=== PATIENT | male | born 1970 | race Hispanic/Latino ===

== ENCOUNTER 2022-09-13 13:51 | Inpatient (IN) | payer OTHER ==
[~2022-09-13 13:51] MED LIST: Iopamidol-370 76% 500 ML 1 ML ONE
[2022-09-13 14:59] LABS: ALT (SGPT) 25 U/L (8-55); AST (SGOT) 16 U/L (5-34); Albumin 4.3 g/dL (3.5-5.0); Alkaline Phosphatase 51 U/L (40-110); Anion Gap 15 mmol/L (10-20); BUN (Urea Nitrogen) 15 mg/dL (8.4-25.7); Bilirubin, Total 1.4 mg/dL (0.2-1.2); Calc. Creatinine Clearance 0 mL/min (70-130); Calcium 10.2 mg/dL (7.8-10.44); Carbon Dioxide 21 mmol/L (22-29); Chloride 101 mmol/L (98-107); Estimated GFR 72; Globulin 3.8 g/dL (2.4-3.5); Glucose 104 mg/dL (70-105); Potassium 3.4 mmol/L (3.5-5.1); Protein, Total 8.1 g/dL (6.0-8.3); Sodium 134 mmol/L (136-145)
[2022-09-13 15:34] LABS: Band 1 % (5-11); Lymphocytes 9 % (21-51); MDiff Complete? YES; Mean Corpuscular HGB CONC 34.5 g/dL (32.0-36.0); Mean Corpuscular Hemoglobin 31.1 pg (27.0-31.0); Mean Corpuscular Volume 90.2 fl (78.0-98.0); Mean Platelet Volume 7.7 fL (7.4-10.4); Monocytes 8 % (0-10); Neutrophil 78 % (42-75); Platelet Count 306 thou/uL (130-400); Platelet Morphology Comment Appears Adequate; RBC Distribution Width 11.5 % (11.5-14.5); RBC Morphology Normal; Reactive Lymphocytes 4 % (0-10); Red Blood Cell (RBC) Count 4.83 mill/uL (4.70-6.10); White Blood Cell (WBC) Count 14.7 thou/uL (4.8-10.8)
[2022-09-13] MEDS ORDERED: Piperacillin/Tazobactam 4.5 GM VIAL ONE (16:37)
[2022-09-13] MEDS ORDERED: Morphine 4 MG/ML VIAL ONE (16:46)
[2022-09-13] MEDS ORDERED: Ondansetron PF 4 MG/2 ML Vial IVP PRN (17:10)
[2022-09-13] MEDS ORDERED: VANCOMYCIN 2 GRAM/500 ML BAG 2 GM in Premix Bag 1 BAG IVPB SCH (18:15)
[2022-09-13] MEDS ORDERED: Albuterol Sulfate 2.5 mg/3 ml Neb NEB PRN (18:23)
[2022-09-13] MEDS ORDERED: Acetaminophen 325 MG TAB ONE (18:47)
[2022-09-13] MEDS: Heparin 5,000 UNITS/ML VIAL SC SCH (20:20)
[2022-09-13] MEDS: Atorvastatin Calcium 20 MG TAB PO SCH (20:20)
[2022-09-13] MEDS: HYDROcodone/Acetaminophen 5/325 mg Tablet PO PRN (20:21)
[2022-09-13] MEDS: Amlodipine 5 MG TAB PO SCH (20:33)
[2022-09-13] MEDS: Allopurinol 100 MG TAB PO SCH (20:34)
[2022-09-13] MEDS ORDERED: Vancomycin 1 GM in Premix Bag 1 BAG IVPB SCH (21:00)
[2022-09-13 22:25] VITALS: BMI 32.5
[2022-09-14] MEDS: Potassium Chloride 20 MEQ in Lactated Ringer's 1,000 ML IV SCH ×3 (00:51→20:40)
[2022-09-14] MEDS: HYDROcodone/Acetaminophen 5/325 mg Tablet PO PRN ×6 (01:01→20:41)
[2022-09-14 02:18] LABS: SARS-CoV-2 NAA Rapid Test Not Detected (NotDetected)
[2022-09-14] MEDS: VANCOMYCIN 1.25 GM/250 ML BAG 1.25 GM in Premix Bag 1 BAG IVPB SCH ×2 (05:32→18:25)
[2022-09-14 05:48] LABS: #Basophils 0.1 thou/uL (0.0-0.2); #Eosinphils 0.4 thou/uL (0.0-0.7); #Lymphocytes 1.6 thou/uL (1.20-3.40); #Monocytes 0.9 thou/uL (0.11-0.59); #Neutrophils 7.6 thou/uL (1.40-6.50); %Basophils 0.5 % (0.0-1.0); %Eosinophils 3.7 % (0.0-10.0); %Lymphocytes 15.1 % (21.0-51.0); %Monocytes 8.1 % (0.0-10.0); %Neutrophils 72.6 % (42.0-75.0); Hemoglobin 13.4 g/dL (14.0-18.0); Mean Corpuscular HGB CONC 33.6 g/dL (32.0-36.0); Mean Corpuscular Hemoglobin 30.9 pg (27.0-31.0); Mean Corpuscular Volume 91.8 fl (78.0-98.0); Mean Platelet Volume 7.9 fL (7.4-10.4); Platelet Count 310 thou/uL (130-400); RBC Distribution Width 11.6 % (11.5-14.5); Red Blood Cell (RBC) Count 4.35 mill/uL (4.70-6.10); White Blood Cell (WBC) Count 10.5 thou/uL (4.8-10.8)
[2022-09-14 06:04] LABS: Anion Gap 13 mmol/L (10-20); BUN (Urea Nitrogen) 14 mg/dL (8.4-25.7); Calc. Creatinine Clearance 139 mL/min (70-130); Calcium 9.5 mg/dL (7.8-10.44); Carbon Dioxide 24 mmol/L (22-29); Chloride 102 mmol/L (98-107); Estimated GFR 104; Glucose 111 mg/dL (70-105); Potassium 3.5 mmol/L (3.5-5.1); Sodium 135 mmol/L (136-145)
[2022-09-14] MEDS: Losartan 25 MG TAB PO SCH (08:42)
[2022-09-14] MEDS: Heparin 5,000 UNITS/ML VIAL SC SCH ×3 (08:43→20:40)
[2022-09-14] MEDS ORDERED: Amlodipine 5 MG TAB PO SCH (09:00)
[2022-09-14] MEDS ORDERED: Allopurinol 100 MG TAB PO SCH (09:00)
[2022-09-14] MEDS ORDERED: Dexamethasone 10 MG/ML VIAL SLOW IVP SCH (09:00)
[2022-09-14] MEDS: Fenofibrate 48 MG TAB PO SCH (12:28)
[2022-09-14] MEDS ORDERED: FLU VACC QS2022-23(6MOS UP)/PF 60 MCG/0.5 ML SYRINGE IM ONE (12:30)
[2022-09-14] MEDS: Allopurinol 100 MG TAB PO SCH (20:40)
[2022-09-14] MEDS: Amlodipine 5 MG TAB PO SCH (20:40)
[2022-09-14] MEDS: Atorvastatin Calcium 20 MG TAB PO SCH (20:40)
[2022-09-15] MEDS: Potassium Chloride 20 MEQ in Lactated Ringer's 1,000 ML IV SCH ×2 (01:40→13:53)
[2022-09-15] MEDS: HYDROcodone/Acetaminophen 5/325 mg Tablet PO PRN (04:20)
[2022-09-15] MEDS: VANCOMYCIN 1.25 GM/250 ML BAG 1.25 GM in Premix Bag 1 BAG IVPB SCH ×3 (06:11→16:18)
[2022-09-15 06:17] LABS: Vancomycin, Trough 7.9 ug/mL
[2022-09-15] MEDS: HYDROcodone/Acetaminophen 10/325 mg Tablet PO PRN ×4 (08:04→22:11)
[2022-09-15 08:14] LABS: #Lymphocytes 1.2 thou/uL (1.20-3.40); #Monocytes 0.7 thou/uL (0.11-0.59); #Neutrophils 11.7 thou/uL (1.40-6.50); %Eosinophils 0.1 % (0.0-10.0); %Lymphocytes 8.6 % (21.0-51.0); %Monocytes 5.2 % (0.0-10.0); %Neutrophils 86.1 % (42.0-75.0); Hemoglobin 13.5 g/dL (14.0-18.0); Mean Corpuscular HGB CONC 33.6 g/dL (32.0-36.0); Mean Corpuscular Hemoglobin 31.3 pg (27.0-31.0); Mean Platelet Volume 7.5 fL (7.4-10.4); Platelet Count 373 thou/uL (130-400); RBC Distribution Width 11.4 % (11.5-14.5); Red Blood Cell (RBC) Count 4.32 mill/uL (4.70-6.10); White Blood Cell (WBC) Count 13.6 thou/uL (4.8-10.8)
[2022-09-15 08:32] LABS: Anion Gap 12 mmol/L (10-20); BUN (Urea Nitrogen) 13 mg/dL (8.4-25.7); Calc. Creatinine Clearance 150 mL/min (70-130); Calcium 9.4 mg/dL (7.8-10.44); Carbon Dioxide 23 mmol/L (22-29); Chloride 105 mmol/L (98-107); Estimated GFR 106; Glucose 140 mg/dL (70-105); Sodium 136 mmol/L (136-145)
[2022-09-15] MEDS: Fenofibrate 48 MG TAB PO SCH (09:15)
[2022-09-15] MEDS: Losartan 25 MG TAB PO SCH (09:15)
[2022-09-15] MEDS: Heparin 5,000 UNITS/ML VIAL SC SCH ×3 (09:16→20:58)
[2022-09-15] MEDS ORDERED: Albuterol 200 PUFF (6.7GM INHALER) INH PRN (15:28)
[2022-09-15] MEDS ORDERED: Morphine 4 MG/ML VIAL SLOW IVP SCH (15:45)
[2022-09-15] MEDS ORDERED: Lidocaine 1% PF 10 ML AMP FS SCH (15:45)
[2022-09-15] MEDS ORDERED: Morphine 4 MG/ML VIAL SLOW IVP PRN (18:19)
[2022-09-15] MEDS: Mupirocin 2% Ointment 22 GM Tube TOP SCH (20:59)
[2022-09-15] MEDS: Allopurinol 100 MG TAB PO SCH (21:00)
[2022-09-15] MEDS: Amlodipine 5 MG TAB PO SCH (21:00)
[2022-09-15] MEDS: Atorvastatin Calcium 20 MG TAB PO SCH (21:00)
[2022-09-16] MEDS: VANCOMYCIN 1.25 GM/250 ML BAG 1.25 GM in Premix Bag 1 BAG IVPB SCH ×2 (00:19→08:54)
[2022-09-16] MEDS: Potassium Chloride 20 MEQ in Lactated Ringer's 1,000 ML IV SCH (03:00)
[2022-09-16] MEDS: HYDROcodone/Acetaminophen 10/325 mg Tablet PO PRN ×2 (04:48→08:51)
[2022-09-16 07:53] VITALS: BP 143/90; TEMP 98.6
[2022-09-16 08:06] LABS: Vancomycin, Trough 17.5 ug/mL
[2022-09-16] MEDS: Losartan 25 MG TAB PO SCH (08:50)
[2022-09-16] MEDS: Mupirocin 2% Ointment 22 GM Tube TOP SCH (08:53)
[2022-09-16] MEDS: Heparin 5,000 UNITS/ML VIAL SC SCH (08:55)
== END 2022-09-16 11:43 | disposition home or self-care (01) | DRG 155 ==
LOC: ERS 13:51 → MSONC 17:22
PROVIDERS: ADMIT Internal Medicine; ATTEND Internal Medicine
PROC: 099K3ZZ Drainage of Nasal Mucosa and Soft Tissue, Percutaneous Approach (ICD-10-PCS; principal; 2022-09-15)
DX: J34.0 Abscess, furuncle and carbuncle of nose (principal); N17.9 Acute kidney failure, unspecified; Z20.822 Contact with and (suspected) exposure to COVID-19; I10 Essential (primary) hypertension; E78.5 Hyperlipidemia, unspecified; M10.9 Gout, unspecified; J45.909 Unspecified asthma, uncomplicated; Z96.642 Presence of left artificial hip joint; Z98.890 Other specified postprocedural states; Z28.21 Immunization not carried out because of patient refusal
CPT/HCPCS: 36415; 70487; 80048; 80053; 80202; 83605; 85025; 87040; 96365; 96375; J1100; J1644; J2001; J2270; J2543; J3370; J3480; J7120; Q9967; U0002